=== PATIENT | female | born 1970 | race Caucasian/White ===

== ENCOUNTER 2022-07-06 16:13 | Emergency (ER) | payer MEDICAID ==
[~2022-07-06] VITALS: Ht 162.6 cm; Wt 81.6 kg
[2022-07-06 16:19] VITALS: BP 149/78
[2022-07-06] MEDS ORDERED: KETOROLAC 30 MG/ML VIAL IM ONE (16:30)
--- NOTE | 2022-07-06 17:45 | NUR ---
Pt returned from xray.
[2022-07-06] MEDS ORDERED: ACET-8905 PO (18:12)
[2022-07-06] MEDS ORDERED: IBUP-2213 PO (18:12)
[2022-07-06 18:34] VITALS: BP 157/70
--- NOTE | 2022-07-06 18:35 | NUR ---
Patient discharged with v/s stable. Written and verbal after care instructions given and explained. Patient alert, oriented and verbalized understanding of instructions. Wheel Chair Assisted with to car. All questions addressed prior to discharge. ID band removed. Patient advised to follow up with PMD. Rx given. Patient educated on indication of medication including possible reaction and side effects. Opportunity to ask questions provided and answered.
== END 2022-07-06 18:35 | disposition home or self-care (01) ==
LOC: MED 16:13
DX: S32.2XXA Fracture of coccyx, initial encounter for closed fracture (principal); S93.402A Sprain of unspecified ligament of left ankle, initial encounter; W18.30XA Fall on same level, unspecified, initial encounter; Y93.89 Activity, other specified; Y92.89 Other specified places as the place of occurrence of the external cause; Y99.8 Other external cause status
CPT/HCPCS: 72100; 72220; 73610; 73630; 96372; 99284; J1885; Q0092